=== PATIENT | male | born 1970 ===

== ENCOUNTER 2020-12-28 19:09 | Inpatient (IN) | payer OTHER ==
[~2020-12-28] VITALS: Ht 180.3 cm; Wt 127.1 kg
[2020-12-28] MEDS ORDERED: TYLENOL 325MG325 MG PO (21:56)
[2020-12-28] MEDS ORDERED: NITROSTAT0.4 MG/TAB SL (21:57)
[2020-12-28] MEDS ORDERED: RESTORIL 1515 MG/CAP PO (21:58)
[2020-12-28] MEDS ORDERED: ALUM-MAG HYDROX30 ML PO (21:58)
[2020-12-28] MEDS ORDERED: RISPERDAL 1M1 MG/TAB PO (21:59)
[2020-12-28] MEDS ORDERED: LASIX 20MG TABL20 MG PO (22:00)
--- NOTE | 2020-12-28 22:00 | NUR ---
Received patient via EMS from [facility] at around 2041H. He is alert and oriented. He is independent and walks frequently. Upon entering in the room, he mentioned that he wanted to take a shower. He is on heparin drip at 14ml/hr infusing on his right hand. He has INT on left hand as well. Gudelia LEES helped patient prepare for shower. Informed Carmen BAILEY via phone call that patient is already admitted at his room but will take a shower and to call her back once patient is done. He denies chest pain at this time.
[2020-12-28] MEDS ORDERED: ASPIRIN E.C. 8181 MG PO (22:01)
[2020-12-28] MEDS ORDERED: COREG12.5 MG PO (22:01)
[2020-12-28] MEDS ORDERED: PLAVIX 75MG TAB75 MG PO (22:02)
[2020-12-28] MEDS ORDERED: LIPITOR 10MG10 MG PO (22:02)
[2020-12-28] MEDS ORDERED: KLONOPIN 0.5MG0.5 MG PO (22:03)
[2020-12-28] MEDS ORDERED: NICODERM C21 MG/PATC TD (22:03)
[2020-12-28 22:47] VITALS: BP 142/81; PULSE 81; TEMP 97.7
[2020-12-28 22:53] LABS: PROTHROMBIN TIME 10.5 SECONDS (9.7-12.8)
--- NOTE | 2020-12-28 23:10 | NUR ---
Tried calling his daughter, Ángela, but no answer. Left a voicemail. Provided patient with sandwich boxes and he was able to consume everything. Instructed patient he is on NPO by midnight. [facility] completed and reviewed.
[2020-12-28 23:24] VITALS: BP 142/81; PULSE 81; TEMP 97.7
[2020-12-29] VITALS (11 sets, daily range): BP systolic 140–178; BP diastolic 66–117; PULSE 61–76; TEMP 97.9–98.8
--- NOTE | 2020-12-29 06:26 | NUR ---
Patient denies chest pain. He states he was able to sleep. Maintained on NPO, patient aware.
[2020-12-29 07:10] LABS: HEMATOCRIT 48.3 % (42.0-52.0); HEMOGLOBIN 15.6 g/dl (13.5-18.0); MEAN CELL VOLUME 89 fl (80.0-100.0); MEAN CORPUSCULAR HEMOGLOBIN 29 pg (27.0-31.0); MEAN CORPUSCULAR HGB CONC 32 g/dl (33.0-37.0); MEAN PLATELET VOLUME 9.5 fl (7.4-10.4); PLATELET COUNT 218 K/mm3 (130-400); RED BLOOD COUNT 5.44 M/mm3 (4.20-5.60); REDCELL DISTRIBUTION WIDTH-CV 14.1 % (11.5-14.5)
[2020-12-29 07:12] LABS: ALANINE AMINOTRANSFERASE 26 U/L (4-49); ALBUMIN 3.5 gm/dL (3.5-5.0); ALKALINE PHOSPHATASE 100 U/L (50-136); ANION GAP 2 mmol/L (7-16); AST,SGOT 34 U/L (15-37); BILIRUBIN,TOTAL 0.2 mg/dL (0.0-1.0); BLOOD UREA NITROGEN 14 mg/dL (9-20); CALCIUM 8.7 mg/dL (8.4-10.2); CARBON DIOXIDE 26 mmol/L (22-30); CHLORIDE 108 mmol/L (98-107); CHOLESTEROL 231 mg/dL (120-200); CREATININE, serum 1.23 (0.66-1.25); GLUCOSE 110 mg/dL (74-106); SODIUM 136 mmol/L (137-145); TOTAL PROTEIN 6.7 gm/dL (6.4-8.2)
[2020-12-29 07:15] LABS: INR 0.9 (0.8-3.0); PROTHROMBIN TIME 9.9 SECONDS (9.7-12.8)
[2020-12-29 07:17] LABS: PARTIAL THROMBOPLASTIN TIME 47.4 SECONDS (26.0-37.0)
--- NOTE | 2020-12-29 07:21 | NUR ---
hepXa 0.2, will incrase by 1.5 ml/hr hour, TRA 1300 units (13 ml /hr) next hepXa check at 1400
[2020-12-29 07:51] LABS: EOSINOPHIL 7 % (0-4); HYPOCHROMIA 2+; LYMPHOCYTE 17 % (20.0-51.0); MYELOCYTE 2 % (0-0); NEUTROPHILS 69 % (42.0-75.2); PLATELET ESTIMATE NORMAL (NORMAL)
[2020-12-29 08:10] LABS: TRIGLYCERIDE 1053 mg/dL
[2020-12-29 08:11] LABS: HDL CHOLESTEROL 32 mg/dL
[2020-12-29] MEDS ORDERED: PRIL40 PO (08:25)
--- NOTE | 2020-12-29 08:56 | NUR ---
Assessment completed, alert/oriented, vital signs stable, denies chest pain or disocmfort this morning, heart RRR/ SR on tele, lungs CTA/ no resp.difficulty at rest, scheduled for heart cath today/ on heparin gtt at this time, he is NPO and unhappy about that fact, denies need at this time, I will continue to monitor
--- NOTE | 2020-12-29 11:00 | NUR ---
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
--- NOTE | 2020-12-29 11:16 | NUR ---
SEE MERGE DOCUMENTATION FOR MEDICATION ADMINISTRATION TIMES AND INTRA/POST PROCEDURE SEDAITON ASSESSMENTS.
--- NOTE | 2020-12-29 11:18 | NUR ---
PAULA met with the patient to discuss discharge plan. The patient lives in [place], [place]. He states that he was in [place] visiting his son, Hermes, on before Hermes got deployed. Hermes left on Friday. He states that he has been staying at the [facility] in [place]. He reports independence with ADLs and does not have any DME. The patient's PCP is a Dr. Delgadillo in [place], [place] and he receives his medications from [facility]. The patient states that he believes he has a DPOA-HC back home, but he was interested in completing a new one while here and getting it notarized. PAULA notified the notaryArlyn. Arlyn notarized the DPOA-HC. The patient designated his daughter, Ángela Hampton (ph#[phone]) and his other daughter, Aaliyah Hampton (ph#[phone]), as the alternate. PAULA to place a copy in the patient's chart. The patient plans to return back to the hotel in [place], before driving back home to [place]. No additional needs at this time. *Discharge plan: home*
--- NOTE | 2020-12-29 12:45 | NUR ---
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
[2020-12-29] MEDS ORDERED: LASIX 40MG TABL40 MG PO (15:52)
[2020-12-29] MEDS ORDERED: LIPITOR 40MG TA40 MG PO (15:52)
--- NOTE | 2020-12-29 16:26 | NUR ---
patient remains stable, VSSS, started to deflate TR band at this time, will monitor for bleeding/oozing
--- NOTE | 2020-12-29 17:49 | NUR ---
Patient doing well post heart cath, left TR band deflated and no signs of bleeding/oozing or hematoma, vital signs stable, denies pain
--- NOTE | 2020-12-29 20:00 | NUR ---
Patient in bed resting. Alert and oriented x 3. Assessment complete. Denies pain at this time. Patient denies pain at this time. Left radial site with bandaid is CDI. Denies needs at this time.
[2020-12-30 03:37] VITALS: BP 118/62; PULSE 74; TEMP 97.9
--- NOTE | 2020-12-30 05:40 | NUR ---
Patient doing well throughout the night, has been up ambulating in halls independently with steady gait. Denies pain through the night. Denies further needs at this time.
--- NOTE | 2020-12-30 07:30 | NUR ---
PT IS AWAKE AND IN THE RECLINER DOING A BREATHING TREATMENT WITH RT. PT IS ASKING WHEN HIS THORACENTESIS WILL BE. THIS RN HAS ATTEMPTED TO CALL ULTRASOUND WITH NO ANSWER. WILL CONTINUE TO TRY.
[2020-12-30 08:00] VITALS: BP 116/78; PULSE 67; TEMP 98.7
[2020-12-30] MEDS ORDERED: COREG12.5 MG PO (09:51)
[2020-12-30] MEDS ORDERED: ASPIRIN E.C. 8181 MG PO (09:51)
[2020-12-30] MEDS ORDERED: PLAVIX 75MG TAB75 MG PO (09:51)
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
--- NOTE | 2020-12-30 11:55 | NUR ---
THE PT WAS NOT WILLING TO LEAVE UNTIL HE TALKED WITH [employer], WHEN THEY ARRIVED, THE PT WAS ESCORTED OUT WITH [employer].
[2020-12-30 12:12] VITALS: BP 120/75; PULSE 76; TEMP 98.6
--- NOTE | 2020-12-30 12:20 | NUR ---
stopped and visited briefly with patient. Nothing else needed at this time.
--- NOTE | 2021-01-04 17:36 | NUR ---
This Career Resource Technician received a call from "Rene Hampton" today at 1615. His ask was that I get his home medications prescribed for him - Imdur 30mg PO Daily, Norvasc 10mg PO Daily, and Toprol XL 100mg Daily. I advised Rene that I was not able to facilitate this citing sergey he was not on these medications while in our facility and in fact was discharged on different medications. Rene went on to tell me he was as "good as a doctor" given his many years of [employer] service in [place]; so he knows his symptoms and that the treatment, for his "high blood pressures that are causing his slurred speech and stroke like symptoms", would be to get on his medications. I advised Rene that in fact if he was having those symptoms he needed to \\hang up and call 911 seeking emergent treatment. He went on to say "you had me escorted out by police so I'm sure you people do not want me back there just get my meds and call me at [phone]" then the call dosconnected. Bethanie Subramanian MSN, CAR DUMPER, Career Resource Technician
--- NOTE | 2021-01-04 17:46 | NUR ---
This RM placed a return call to Rene at [phone]. I asked Rene if he had called for help, he said no. I asked if he was still having symptoms; he said "I'm a little lightheaded". I again recommended that he seek medical care. I ask Rene where he was, he said "well I will see, perhaps in the morning I will get a bus and come up there". He went on to thank me for calling and then hung up. Bethanie Subramanian MSN, PROGRAM MANAGEMENT SPECIALIST, Outbound Supervisor
== END 2020-12-30 11:55 | disposition home or self-care (01) | DRG 281 ==
LOC: MEDICAL 19:09
PROVIDERS: Physician Assistant; ADMIT Student in an Organized Health Care Education/Training Program
PROC: 4A023N7 Measurement of Cardiac Sampling and Pressure, Left Heart, Percutaneous Approach (ICD-10-PCS; principal; 2020-12-29)
PROC: B211YZZ Fluoroscopy of Multiple Coronary Arteries using Other Contrast (ICD-10-PCS; 2020-12-29)
PROC: B213YZZ Fluoroscopy of Multiple Coronary Artery Bypass Grafts using Other Contrast (ICD-10-PCS; 2020-12-29)
PROC: B218YZZ Fluoroscopy of Left Internal Mammary Bypass Graft using Other Contrast (ICD-10-PCS; 2020-12-29)
DX: I21.4 Non-ST elevation (NSTEMI) myocardial infarction (principal); I16.1 Hypertensive emergency; I13.0 Hypertensive heart and chronic kidney disease with heart failure and stage 1 through stage 4 chronic kidney disease, or unspecified chronic kidney disease; I25.10 Atherosclerotic heart disease of native coronary artery without angina pectoris; E78.5 Hyperlipidemia, unspecified; K21.9 Gastro-esophageal reflux disease without esophagitis; Z66 Do not resuscitate; I50.9 Heart failure, unspecified; J44.9 Chronic obstructive pulmonary disease, unspecified; G47.33 Obstructive sleep apnea (adult) (pediatric); N18.2 Chronic kidney disease, stage 2 (mild); F17.210 Nicotine dependence, cigarettes, uncomplicated; E66.9 Obesity, unspecified; R73.03 Prediabetes; G47.00 Insomnia, unspecified; Z95.1 Presence of aortocoronary bypass graft; Z95.5 Presence of coronary angioplasty implant and graft; Z86.73 Personal history of transient ischemic attack (TIA), and cerebral infarction without residual deficits; Z79.82 Long term (current) use of aspirin; Z79.02 Long term (current) use of antithrombotics/antiplatelets; Z20.822 Contact with and (suspected) exposure to COVID-19; Z88.8 Allergy status to other drugs, medicaments and biological substances; Z88.0 Allergy status to penicillin
CPT/HCPCS: 99222-AI; 99232-AI; 99239; C1769; C1887; C9113; J1644; J2250; J2405; J3010; J7030; Q9967